=== PATIENT | female | born 1980 | race Caucasian/White ===

== ENCOUNTER 2017-04-11 14:22 | Observation (INO) | payer MEDICAID ==
[2017-04-11] MEDS ORDERED: LACTATED RINGER'S 1,000 ML IV (16:43)
[2017-04-11] MEDS ORDERED: MISOPROSTOL 200 MCG TAB PR (17:00)
[2017-04-11] MEDS ORDERED: LIDOCAINE 1% (MPF) 30 ML INJ INJ (17:00)
[2017-04-11] MEDS ORDERED: OXYTOCIN 30 UNITS/LR 500 ML IV ×3 (17:00→17:30)
[2017-04-11] MEDS ORDERED: BUTORPHANOL 2 MG INJ IV ×2 (17:00)
[2017-04-11] MEDS ORDERED: METHYLERGONOVINE 0.2 MG INJ IM (17:00)
[2017-04-11] MEDS ORDERED: CARBOPROST 250 MCG INJ IM (17:00)
[2017-04-11] MEDS: LACTATED RINGER'S 1,000 ML IV ×2 (17:19→22:56)
[2017-04-11 17:21] LABS: ADD MAN DIFF? NO
[2017-04-11 17:24] LABS: BASOPHILS % 0.3 % (0.0-2.0); EOSINOPHILS # 0.1 10^3/ul (0.0-0.5); EOSINOPHILS % 0.7 % (0.0-7.0); HEMATOCRIT 34.4 % (37.0-47.0); HEMOGLOBIN 11.6 g/dl (12.0-16.0); LYMPHOCYTES # 2.7 10^3/ul (0.8-2.9); LYMPHOCYTES % 17.8 % (15.0-51.0); MEAN CORPUSCULAR HEMOGLOBIN 32.1 pg (29.0-33.0); MEAN CORPUSCULAR HGB CONC 33.7 g/dl (32.0-37.0); MEAN CORPUSCULAR VOLUME 95.3 fl (82.0-101.0); MEAN PLATELET VOLUME 10.3 fl (7.4-10.4); MONOCYTE # 1.1 10^3/ul (0.3-0.9); MONOCYTES % 7.3 % (0.0-11.0); NEUTROPHIL # 10.9 10^3/ul (1.6-7.5); NEUTROPHILS % 72.7 % (39.0-77.0); PLATELET COUNT 203 10^3/UL (140-415); RED BLOOD COUNT 3.61 10^6/ul (4.20-5.40); RED CELL DISTRIBUTION WIDTH 12.6 % (11.5-14.5)
[2017-04-11 17:42] LABS: INR 0.95; PROTIME 12.8 Sec (11.9-14.9)
[2017-04-11 17:43] LABS: PARTIAL THROMBOPLASTIN TIME 27.5 Sec (25.0-35.0)
[2017-04-11] MEDS: OXYTOCIN 30 UNITS/LR 500 ML IV (17:52)
[2017-04-12] MEDS: LACTATED RINGER'S 1,000 ML IV (07:40)
[2017-04-12] MEDS ORDERED: INFLUENZA VIRUS VACCINE 0.5 ML SYG IM* (11:00)
[2017-04-12 22:33] LABS: RAPID PLASMA REAGIN NONREACTIVE (NR)
== END 2017-04-12 12:55 | disposition home or self-care (01) ==
LOC: L-D 14:22
PROVIDERS: Obstetrics & Gynecology
DX: O47.1 False labor at or after 37 completed weeks of gestation (principal); Z23 Encounter for immunization
CPT/HCPCS: 76818; 85025; 85610; 85730; 86592; 86900; 86901; 90686; 99217

== ENCOUNTER 2017-04-14 09:36 | Outpatient (CLI) | payer MEDICAID | END 2017-04-14 12:05 | disposition home or self-care (01) | LOC: OBT 09:36 → L-D 09:36 → OBT 12:05 | DX: O26.893 Other specified pregnancy related conditions, third trimester (principal); Z3A.38 38 weeks gestation of pregnancy; K62.89 Other specified diseases of anus and rectum; K64.9 Unspecified hemorrhoids | CPT/HCPCS: 76818 ==

== ENCOUNTER 2017-04-18 18:57 | Inpatient (IN) | payer MEDICAID ==
[2017-04-18] MEDS ORDERED: LACTATED RINGER'S 1,000 ML IV (21:10)
[2017-04-18 21:25] LABS: ADD MAN DIFF? NO
[2017-04-18] MEDS ORDERED: OXYCODONE/ACETAMINOPHEN (5/325) TAB PO (21:30)
[2017-04-18] MEDS ORDERED: CARBOPROST 250 MCG INJ IM (21:30)
[2017-04-18] MEDS ORDERED: METHYLERGONOVINE 0.2 MG INJ IM (21:30)
[2017-04-18] MEDS ORDERED: LIDOCAINE 1% (MPF) 30 ML INJ INJ (21:30)
[2017-04-18] MEDS ORDERED: OXYTOCIN 30 UNITS/LR 500 ML IV ×2 (21:30)
[2017-04-18] MEDS ORDERED: IBUPROFEN 600 MG TAB PO (21:30)
[2017-04-18] MEDS ORDERED: MISOPROSTOL 200 MCG TAB PR (21:30)
[2017-04-18 21:33] LABS: BASOPHILS % 0.3 % (0.0-2.0); EOSINOPHILS # 0.1 10^3/ul (0.0-0.5); EOSINOPHILS % 0.9 % (0.0-7.0); HEMATOCRIT 35.5 % (37.0-47.0); HEMOGLOBIN 12.3 g/dl (12.0-16.0); LYMPHOCYTES # 2.8 10^3/ul (0.8-2.9); LYMPHOCYTES % 23.2 % (15.0-51.0); MEAN CORPUSCULAR HEMOGLOBIN 32.2 pg (29.0-33.0); MEAN CORPUSCULAR HGB CONC 34.6 g/dl (32.0-37.0); MEAN CORPUSCULAR VOLUME 92.9 fl (82.0-101.0); MEAN PLATELET VOLUME 10.6 fl (7.4-10.4); MONOCYTE # 0.9 10^3/ul (0.3-0.9); MONOCYTES % 7.2 % (0.0-11.0); NEUTROPHIL # 8.1 10^3/ul (1.6-7.5); NEUTROPHILS % 67.3 % (39.0-77.0); PLATELET COUNT 215 10^3/UL (140-415); RED BLOOD COUNT 3.82 10^6/ul (4.20-5.40); RED CELL DISTRIBUTION WIDTH 12.8 % (11.5-14.5)
[2017-04-18 21:48] LABS: INR 0.91; PROTIME 12.3 Sec (11.9-14.9)
[2017-04-18] MEDS: LACTATED RINGER'S 1,000 ML IV (21:48)
[2017-04-19] MEDS: OXYTOCIN 30 UNITS/LR 500 ML IV (03:23)
[2017-04-19] MEDS: LACTATED RINGER'S 500 ML IV ×6 (03:50→17:21)
[2017-04-19] MEDS: LACTATED RINGER'S 1,000 ML IV (06:44)
[2017-04-19] MEDS: BUTORPHANOL 2 MG INJ IV (10:01)
[2017-04-19] MEDS ORDERED: ONDANSETRON 4 MG INJ IV (18:00)
[2017-04-19] MEDS ORDERED: NALOXONE (0.4 MG/ML) INJ IV (18:00)
[2017-04-19] MEDS ORDERED: DIPHENHYDRAMINE 50 MG INJ IV (18:00)
[2017-04-19] MEDS ORDERED: HYDROmorphONE 0.5 MG/0.5 ML SYG IV ×2 (18:00)
[2017-04-19] MEDS ORDERED: KETOROLAC 30 MG INJ IV (18:00)
[2017-04-19 22:35] LABS: RAPID PLASMA REAGIN NONREACTIVE (NR)
[2017-04-20] MEDS: LACTATED RINGER'S 500 ML IV ×4 (00:28→12:11)
[2017-04-20] MEDS: FENTAnyl 2MCG/ML-ROPIV 0.2% 100 ML BAG EPI ×2 (02:15→09:48)
[2017-04-20] MEDS: AMPICILLIN 2 GM/NS (PMX) 100 ML IV (06:03)
[2017-04-20] MEDS: AMPICILLIN 1 GM/NS (PMX) 50 ML IV ×2 (09:45→14:19)
[2017-04-20 11:51] LABS: RUBELLA ANTIBODY - IGG 3.76 index; RUBELLA ANTIBODY - IGM <20.00 AU/mL
[2017-04-20] MEDS ORDERED: GENTAMICIN 80 MG/NS (PMX) 50 ML (13:27)
[2017-04-20] MEDS ORDERED: ACETAMINOPHEN 325 MG TAB (13:28)
[2017-04-20] MEDS: GENTAMICIN 80 MG/NS (PMX) 50 ML IVPB ×2 (13:35→21:51)
[2017-04-20] MEDS: ACETAMINOPHEN 325 MG TAB PO (13:35)
[2017-04-20] MEDS: OXYTOCIN 30 UNITS/LR 500 ML IV (15:09)
[2017-04-20] MEDS ORDERED: OXYTOCIN 30 UNITS/LR 500 ML IV (17:30)
[2017-04-20] MEDS ORDERED: OXYCODONE/ASPIRIN (4.88/325) TAB PO (17:30)
[2017-04-20] MEDS ORDERED: SENNA/DOCUSATE NA (8.6MG/50MG) TAB PO (17:30)
[2017-04-20] MEDS ORDERED: CARBOPROST 250 MCG INJ IM (17:30)
[2017-04-20] MEDS ORDERED: METHYLERGONOVINE 0.2 MG INJ IM (17:30)
[2017-04-20] MEDS ORDERED: ZOLPIDEM 5 MG TAB PO (17:30)
[2017-04-20] MEDS ORDERED: MISOPROSTOL 200 MCG TAB PR (17:30)
[2017-04-20] MEDS: BENZOCAINE 20% 56 ML SPRAY TOP (18:07)
[2017-04-20] MEDS: IBUPROFEN 600 MG TAB PO ×2 (18:07→23:54)
[2017-04-20] MEDS: LANOLIN 7 GM TUBE TOP (18:07)
[2017-04-20] MEDS: WITCH HAZEL/GLYCERIN PAD PR (18:07)
[2017-04-20] MEDS: SENNA/DOCUSATE NA (8.6MG/50MG) TAB PO (21:05)
[2017-04-21] MEDS: GENTAMICIN 80 MG/NS (PMX) 50 ML IVPB (05:27)
[2017-04-21] MEDS: IBUPROFEN 600 MG TAB PO ×3 (05:27→17:35)
[2017-04-21 08:38] LABS: ADD MAN DIFF? NO
[2017-04-21 08:45] LABS: WHITE BLOOD COUNT 16.5 10^3/ul (4.8-10.8)
[2017-04-21 08:45] LABS: BASOPHILS % 0.1 % (0.0-2.0); EOSINOPHILS # 0.1 10^3/ul (0.0-0.5); EOSINOPHILS % 0.6 % (0.0-7.0); HEMATOCRIT 30.8 % (37.0-47.0); HEMOGLOBIN 10.7 g/dl (12.0-16.0); LYMPHOCYTES % 12.2 % (15.0-51.0); MEAN CORPUSCULAR HEMOGLOBIN 33.2 pg (29.0-33.0); MEAN CORPUSCULAR HGB CONC 34.7 g/dl (32.0-37.0); MEAN CORPUSCULAR VOLUME 95.7 fl (82.0-101.0); MEAN PLATELET VOLUME 10.6 fl (7.4-10.4); MONOCYTES % 5.8 % (0.0-11.0); NEUTROPHIL # 13.3 10^3/ul (1.6-7.5); NEUTROPHILS % 80.6 % (39.0-77.0); PLATELET COUNT 213 10^3/UL (140-415); RED BLOOD COUNT 3.22 10^6/ul (4.20-5.40); RED CELL DISTRIBUTION WIDTH 13.2 % (11.5-14.5)
[2017-04-21] MEDS: SENNA/DOCUSATE NA (8.6MG/50MG) TAB PO ×2 (09:08→21:14)
[2017-04-22] MEDS: IBUPROFEN 600 MG TAB PO ×3 (00:25→12:11)
[2017-04-22] MEDS: DIPHTH/TET/ACEL PERTUSS (ADULT) 0.5 ML VIAL IM* (09:06)
[2017-04-22] MEDS: SENNA/DOCUSATE NA (8.6MG/50MG) TAB PO (09:06)
== END 2017-04-22 18:00 | disposition home or self-care (01) | DRG 775 ==
LOC: PP1 04-20 16:55 → L-D 18:57
PROVIDERS: Obstetrics & Gynecology
PROC: 10E0XZZ Delivery of Products of Conception, External Approach (ICD-10-PCS; principal; 2017-04-20)
PROC: 3E033VJ Introduction of Other Hormone into Peripheral Vein, Percutaneous Approach (ICD-10-PCS; 2017-04-20)
DX: O69.81X0 Labor and delivery complicated by cord around neck, without compression, not applicable or unspecified (principal); Z37.0 Single live birth; Z3A.39 39 weeks gestation of pregnancy
CPT/HCPCS: 62319; 76815; 85025; 85610; 85730; 86592; 86762; 86850; 86900; 86901; 90715; 99464